=== PATIENT | female | born 1995 | race Caucasian/White ===

== ENCOUNTER 2022-04-29 01:03 | Emergency (ER) | payer SELFPAY ==
[~2022-04-29] VITALS: Ht 162.6 cm; Wt 68.0 kg
--- NOTE | 2022-04-29 01:13 | NUR ---
Called first time- no show in lobby or outside.
--- NOTE | 2022-04-29 01:20 | NUR ---
Called second time- no show in lobby or outside.
[2022-04-29 01:42] VITALS: BP 136/75
--- NOTE | 2022-04-29 01:51 | NUR ---
PT WALKED TO BED 2
--- NOTE | 2022-04-29 02:00 | NUR ---
26 Y.O F C/O foreign body x today. Patient reported, ate chicken, chicken bone stuck inside her throat, no SOB. DENIES N/V/D AND CHEST PAIN. PT TALKING WITH OUT TROUBLE. A&OX4, SKIN INTACT, VITALS WNL, NO SIGNS OF REPIRATORY DISTRESS AND STEADY GAIT. PMHx: DENIES
[2022-04-29] MEDS ORDERED: DICYCLOMINE HCL LIQUID 20 MG, ALUMINUM HYD/MAG/SIMETHICONE 30 ML, LIDOCAINE VISCOUS 2% ... PO ONE ×3 (02:05)
[2022-04-29] MEDS ORDERED: KETOROLAC 30 MG/ML VIAL IM ONE (02:05)
[2022-04-29] MEDS ORDERED: ALUMINUM HYD/MAG/SIMETHICONE 30 ML UDC ONE (02:13)
[2022-04-29] MEDS ORDERED: DICYCLOMINE HCL LIQUID 10 MG/5 ML UDC ONE (02:14)
--- NOTE | 2022-04-29 02:50 | NUR ---
URINE COLLECTED AND WALKED TO LAB
[2022-04-29 03:00] LABS: APPEARANCE,URINE CLEAR (CLEAR); BILIRUBIN,URINE NEGATIVE (NEGATIVE); BLOOD, URINE NEGATIVE (NEGATIVE); COLOR,URINE YELLOW (YELLOW); LEUKOCYTE ESTERASE ,URINE NEGATIVE (NEGATIVE); NITRITE, URINE NEGATIVE (NEGATIVE); PH,URINE 7.5 (5.0-9.0); UGLUCOSE NEGATIVE (NEGATIVE)
[2022-04-29 03:12] LABS: BARBITURATE, URINE NEGATIVE ng/ml (NEG <=200); BENZODIAZEPINE, URINE NEGATIVE ng/mL (NEG <=200); CANNABINOID, URINE NEGATIVE ng/mL (NEG <=50); COCAINE, URINE NEGATIVE ng/mL (NEG <=300); OPIATE, URINE NEGATIVE ng/mL (NEG <=2000); PHENCYCLIDINE SCREEN,URINE NEGATIVE ng/mL (NEG <=25)
--- NOTE | 2022-04-29 04:53 | NUR ---
PT STEPPED OUTSIDE TO MAKE PHONE CALL
[2022-04-29] MEDS ORDERED: LIDO100S PO (06:24)
[2022-04-29] MEDS ORDERED: NAPR-54 PO (06:24)
--- NOTE | 2022-04-29 06:42 | NUR ---
PT STEPPED OUTSIDE BUT WILL COME BACK IN
[2022-04-29 07:02] VITALS: BP 132/72
--- NOTE | 2022-04-29 07:03 | NUR ---
Patient discharged with v/s stable. Written and verbal after care instructions given and explained. Patient alert, oriented and verbalized understanding of instructions. Ambulatory with steady gait. All questions addressed prior to discharge. ID band removed. Patient advised to follow up with PMD. Rx of NAPROXEN AND LIDOCAINE HCL given. Patient educated on indication of medication including possible reaction and side effects. Opportunity to ask questions provided and answered.
== END 2022-04-29 07:03 | disposition home or self-care (01) ==
LOC: MED 01:03
DX: T18.9XXA Foreign body of alimentary tract, part unspecified, initial encounter (principal); F45.8 Other somatoform disorders; Z88.0 Allergy status to penicillin; Z79.899 Other long term (current) drug therapy; X58.XXXA Exposure to other specified factors, initial encounter; Y93.89 Activity, other specified; Y92.89 Other specified places as the place of occurrence of the external cause; Y99.8 Other external cause status
CPT/HCPCS: 70490; 80305; 81003; 81025; 96372; 99285; J1885